=== PATIENT | female | born 2005 | race Two or more races ===

== ENCOUNTER 2023-07-09 00:24 | Inpatient (IN) | payer BC ==
[~2023-07-09 00:24] MED LIST: Bupivacaine 0.25% 10 ML SDV ONE; Ropivacaine 0.2% PF 2 MG/ML 20 ML SDV ONE
[2023-07-09] MEDS ORDERED: Penicillin G Potassium 5 MILLUNITS in Sodium Chloride 0.9% 100 ML IV SCH (08:00)
[2023-07-09] MEDS ORDERED: Lidocaine 1% 50 ML MDV INJECT PRN (09:16)
[2023-07-09] MEDS ORDERED: Nalbuphine HCl 10 MG/ 1ML Amp IVPUSH PRN (09:16)
[2023-07-09] MEDS ORDERED: Sodium Chloride 0.9% 10 ML Syringe FLUSH PRN (09:16)
[2023-07-09 11:09] LABS: BASOPHILS PERCENT AUTO 0.2 % (0.0-1.0); EOSINOPHILS PERCENT AUTO 0.2 % (0.0-6.0); HEMATOCRIT 41.5 % (37.0-47.0); HEMOGLOBIN 14.4 gm/dl (12.0-16.0); IMMATURE GRAN ABSOLUTE AUTO 0.05 K/mm3 (0.00-0.05); IMMATURE GRAN PERCENT AUTO 0.4 % (0.0-0.4); LYMPHOCYTES ABSOLUTE AUTO 1.7 K/mm3 (1.0-4.8); LYMPHOCYTES PERCENT AUTO 14.8 % (24.0-44.0); MEAN CORPUSCULAR HEMOGLOBIN 30.5 pg (28.0-32.0); MEAN CORPUSCULAR HGB CONC 34.7 g/dl (32.0-36.0); MEAN CORPUSCULAR VOLUME 87.9 fl (83.0-99.0); MONOCYTES ABSOLUTE AUTO 0.6 K/mm3 (0.0-0.8); MONOCYTES PERCENT AUTO 5.7 % (0.0-8.0); NEUTROPHILS ABSOLUTE AUTO 8.8 K/mm3 (1.8-7.7); NEUTROPHILS PERCENT AUTO 78.7 % (41.0-71.0); PLATELET COUNT,PLT 301 K/mm3 (150-400); RED BLOOD CELL COUNT 4.72 M/mm3 (4.10-5.30); WHITE BLOOD CELL COUNT,WBC 11.19 K/mm3 (3.9-11.3)
[2023-07-09] MEDS ORDERED: ePHEDrine 50 MG/ML SDV IVPUSH PRN (11:12)
[2023-07-09] MEDS ORDERED: diphenhydrAMINE 50 MG/ML SDV IVPUSH PRN (11:12)
[2023-07-09] MEDS: Lactated Ringers 1,000 ML IV SCH (12:17)
[2023-07-09] MEDS: Oxytocin/Lactated Ringers 30 UNIT/500 ML BAG IV SCH (12:17)
[2023-07-09] MEDS: Penicillin G Potassium 2.5 MILLUNITS in Sodium Chloride 0.9% 100 ML IV SCH (12:19)
[2023-07-09] MEDS: Ondansetron 4 MG/2 ML SDV IVPUSH ONE (13:06)
[2023-07-09] MEDS: Bupivacaine/fentaNYL/NS 100 ML Bag EPIDUR PRN (13:43)
[2023-07-09] MEDS: fentaNYL 100 MCG/2 ML SDV EPIDUR PRN (13:44)
[2023-07-09] MEDS: Sodium Chloride 0.9% 10 ML Syringe FLUSH SCH (22:21)
[2023-07-10] MEDS: Methylergonovine 0.2 MG/1 ML Amp IM ONE (00:53)
[2023-07-10] MEDS: Oxytocin/Lactated Ringers 30 UNIT/500 ML BAG IV SCH (01:17)
[2023-07-10] MEDS ORDERED: Ibuprofen 600 MG Tab PO PRN (01:23)
[2023-07-10] MEDS: Benzocaine/Menthol 20%-0.5% Spray 78 GM Cannister TOP PRN (02:21)
[2023-07-10] MEDS: Witch Hazel Medicated Pads 40/Jar TOP PRN (02:21)
[2023-07-10] MEDS: Methylergonovine 0.2 MG/1 ML Amp ONE (02:22)
[2023-07-10] MEDS: Acetaminophen 325 MG Tab PO PRN (20:15)
== END 2023-07-11 09:15 | disposition home or self-care (01) | DRG 560 ==
LOC: JD.OB 00:24 → OBSVTOIN 07-10 00:24 → JD.OB 07-10 00:25
PROVIDERS: ADMIT Obstetrics & Gynecology; ATTEND Obstetrics & Gynecology
PROC: 10E0XZZ Delivery of Products of Conception, External Approach (ICD-10-PCS; principal; 2023-07-10)
PROC: 10907ZC Drainage of Amniotic Fluid, Therapeutic from Products of Conception, Via Natural or Artificial Opening (ICD-10-PCS; 2023-07-10)
PROC: 3E0R3BZ Introduction of Anesthetic Agent into Spinal Canal, Percutaneous Approach (ICD-10-PCS; 2023-07-10)
PROC: 00HU33Z Insertion of Infusion Device into Spinal Canal, Percutaneous Approach (ICD-10-PCS; 2023-07-10)
DX: O48.0 Post-term pregnancy (principal); Z37.0 Single live birth; O99.824 Streptococcus B carrier state complicating childbirth; O77.0 Labor and delivery complicated by meconium in amniotic fluid; O71.82 Other specified trauma to perineum and vulva; Z3A.40 40 weeks gestation of pregnancy
CPT/HCPCS: 36415; 51701; 51702; 59025; 59409; 85025; 86592; 86850; 86900; 86901; A9270-GY; J2210; J2405; J2540; J2795; J3010; J3490; J7120; J7999

== ENCOUNTER 2024-07-30 06:56 | Inpatient (IN) | payer BC ==
[~2024-07-30 06:56] MED LIST changes: -Bupivacaine 0.25% 10 ML SDV ONE; +Lidocaine 1% 10 ML MDV ONE; -Ropivacaine 0.2% PF 2 MG/ML 20 ML SDV ONE
[2024-07-30] MEDS ORDERED: Nalbuphine 10 MG/1 ML Vial IVPUSH PRN (07:03)
[2024-07-30] MEDS ORDERED: Ondansetron 4 MG/2 ML SDV IVPUSH PRN (07:03)
[2024-07-30] MEDS ORDERED: Lidocaine 1% 50 ML MDV INJECT PRN (07:03)
[2024-07-30] MEDS ORDERED: Sodium Chloride 0.9% 10 ML Syringe FLUSH PRN (07:03)
[2024-07-30 07:20] LABS: BASOPHILS PERCENT AUTO 0.3 % (0.0-1.0); EOSINOPHILS ABSOLUTE AUTO 0.1 K/mm3 (0.0-0.4); EOSINOPHILS PERCENT AUTO 0.9 % (0.0-6.0); HEMATOCRIT 36.6 % (37.0-47.0); HEMOGLOBIN 12.2 gm/dl (12.0-16.0); IMMATURE GRAN ABSOLUTE AUTO 0.02 K/mm3 (0.00-0.05); IMMATURE GRAN PERCENT AUTO 0.3 % (0.0-0.4); LYMPHOCYTES ABSOLUTE AUTO 1.9 K/mm3 (1.0-4.8); LYMPHOCYTES PERCENT AUTO 27.9 % (24.0-44.0); MEAN CORPUSCULAR HEMOGLOBIN 27.1 pg (28.0-32.0); MEAN CORPUSCULAR HGB CONC 33.3 g/dl (32.0-36.0); MEAN PLATELET VOLUME 9.7 fl (9.4-12.3); MONOCYTES ABSOLUTE AUTO 0.5 K/mm3 (0.0-0.8); MONOCYTES PERCENT AUTO 6.8 % (0.0-8.0); NEUTROPHILS ABSOLUTE AUTO 4.5 K/mm3 (1.8-7.7); NEUTROPHILS PERCENT AUTO 63.8 % (41.0-71.0); WHITE BLOOD CELL COUNT,WBC 6.96 K/mm3 (3.9-11.3)
[2024-07-30 07:29] LABS: MEAN CORPUSCULAR VOLUME 81.3 fl (83.0-99.0); PLATELET COUNT,PLT 263 K/mm3 (150-400)
[2024-07-30 07:55] LABS: SLIDE REVIEW ABNORMAL SMEAR
[2024-07-30] MEDS: Lactated Ringers 1,000 ML IV SCH (08:20)
[2024-07-30] MEDS: Oxytocin/0.9 % Sodium Chloride 30 UNIT/500 ML BAG IV SCH ×2 (08:27→18:37)
[2024-07-30] MEDS ORDERED: ePHEDrine 50 MG/ML SDV IVPUSH PRN (13:21)
[2024-07-30] MEDS ORDERED: diphenhydrAMINE 50 MG/ML SDV IVPUSH PRN (13:21)
[2024-07-30] MEDS: fentaNYL 100 MCG/2 ML SDV EPIDUR PRN (13:30)
[2024-07-30] MEDS: Bupivacaine/fentaNYL/NS 100 ML Bag EPIDUR PRN (13:30)
[2024-07-30] MEDS: Sodium Chloride 0.9% 10 ML Syringe FLUSH SCH (16:21)
[2024-07-30] MEDS: Acetaminophen 325 MG Tab PO PRN (17:27)
[2024-07-30] MEDS: Methylergonovine 0.2 MG/1 ML Amp IM STA (18:28)
[2024-07-30] MEDS ORDERED: Acetaminophen 325 MG Tab PO PRN (19:41)
[2024-07-30] MEDS ORDERED: Docusate Sodium 100 MG Cap PO PRN (19:41)
[2024-07-30] MEDS: Ibuprofen 600 MG Tab PO SCH (20:27)
[2024-07-30] MEDS: Witch Hazel Medicated Pads 40/Jar TOP PRN (20:28)
[2024-07-30] MEDS: Benzocaine/Menthol 20%-0.5% Spray 78 GM Cannister TOP PRN (20:29)
[2024-07-31] MEDS: Enoxaparin 40 MG/0.4 ML Syringe SUBCUT SCH (08:27)
== END 2024-07-31 19:24 | disposition home or self-care (01) | DRG 560 ==
LOC: JD.OBCHECK 06:56 → JD.OB 07:02 → JD.OBCHECK 07:03 → JD.OB 07:03 → OBSVTOIN 18:23 → JD.OB 18:24
PROVIDERS: ADMIT Obstetrics & Gynecology; ATTEND Obstetrics & Gynecology
PROC: 10E0XZZ Delivery of Products of Conception, External Approach (ICD-10-PCS; principal; 2024-07-30)
PROC: 0U7C7ZZ Dilation of Cervix, Via Natural or Artificial Opening (ICD-10-PCS; 2024-07-30)
PROC: 3E033VJ Introduction of Other Hormone into Peripheral Vein, Percutaneous Approach (ICD-10-PCS; 2024-07-30)
PROC: 10907ZC Drainage of Amniotic Fluid, Therapeutic from Products of Conception, Via Natural or Artificial Opening (ICD-10-PCS; 2024-07-30)
PROC: 3E0R3BZ Introduction of Anesthetic Agent into Spinal Canal, Percutaneous Approach (ICD-10-PCS; 2024-07-30)
PROC: 00HU33Z Insertion of Infusion Device into Spinal Canal, Percutaneous Approach (ICD-10-PCS; 2024-07-30)
DX: O80 Encounter for full-term uncomplicated delivery (principal); Z37.0 Single live birth; Z3A.39 39 weeks gestation of pregnancy; Z86.718 Personal history of other venous thrombosis and embolism; Z92.29 Personal history of other drug therapy
CPT/HCPCS: 36415; 51702; 59025; 59409; 85025; 86592; 86850; 86900; 86901; A9270-GY; J1650; J2003; J2210; J3010; J3490; J7120; J7999